=== PATIENT | male | born 1970 | race Caucasian/White ===

== ENCOUNTER → 2023-06-07 | Outpatient (CLI) | payer BC ==
[2023-06-07 15:55] LABS: Hematocrit 32.3 % (37.0-53.0); Hemoglobin 9.1 g/dL (13.5-17.5); Mean Corpuscular HGB 19.2 pg (26.0-34.0); Mean Corpuscular HGB Conc 28.2 g/dL (31.5-36.5); Mean Corpuscular Volume 68 fL (80-100); Mean Platelet Volume 10.7 fL (9.1-12.4); Platelet Count 509 K/mm3 (150-400); RDW Standard Deviation 42.6 fL (35.1-46.3); Red Blood Cell Count 4.75 M/mm3 (4.30-5.90); White Blood Cell Count 6.22 K/mm3 (4.00-11.30)
[2023-06-07 16:02] LABS: Ferritin, Serum 6 ng/mL (26-388); Iron Serum 14 ug/dL (65-175); Percent Saturation 2.8 % (20.0-50.0); Total Iron Binding Capacity 496 ug/dL (250-450); Very Low Density Lipoprot Chol 13 mg/dL (6-32)
[2023-06-07 16:12] LABS: Alanine Aminotransfer (ALT/SGP 68 U/L (12-78); Albumin, Blood 4.1 g/dL (3.4-5.0); Alk Phos 98 U/L (50-136); Anion Gap 5 mmol/L (6-16); Aspartate Aminotrans (AST/SGOT 40 U/L (12-37); Bilirubin, Total 0.4 mg/dL (0.1-1.0); Blood Urea Nitrogen 22 mg/dL (8-24); Bun/Creatinine Ratio 22.9 (12.0-20.0); CHOL/HDL RATIO 3.3; CO2, Blood 22 mmol/L (21-32); Chloride, Blood 108 mmol/L (98-108); Cholesterol 120 mg/dL (50-200); Creatinine, Blood 0.96 mg/dL (0.60-1.20); Globulin, Blood 4.2 g/dL (2.2-4.0); Glomerular Filtration Rate 94 (60-); Glucose, Blood 102 mg/dL (70-99); HDL Cholesterol 36 mg/dL (>39); Low Density Lipoprotein Chol 71 mg/dL (0-110); Potassium, Blood 4.4 mmol/L (3.5-5.5); Sodium, Blood 135 mmol/L (136-145); Total Protein, Blood 8.3 g/dL (6.4-8.2); Triglycerides 67 mg/dL (30-160)
[2023-06-07 16:25] LABS: BASOPHILS ABSOLUTE MAN 0.06 K/mm3 (0.00-0.23); BASOPHILS PERCENT MAN 1 % (0-2); EOSINOPHILS ABSOLUTE MAN 0.31 K/mm3 (0.00-0.68); EOSINOPHILS PERCENT MAN 5 % (0-6); LYMPHOCYTES ABSOLUTE MAN 2.11 K/mm3 (0.84-5.20); LYMPHOCYTES PERCENT MAN 34 % (21-46); MONOCYTES ABSOLUTE MAN 0.74 K/mm3 (0.16-1.47); MONOCYTES PERCENT MAN 12 % (4-13); NEUTROPHILS ABSOLUTE MAN 2.98 K/mm3 (1.96-9.15); SEG NEUTROPHILS PERCENT MAN 48 % (41-73); TOTAL CELLS COUNTED 100
== END ==
LOC: LAB SHORT 12:40 → LAB 12:40
PROVIDERS: Physician Assistant
DX: Z11.59 Encounter for screening for other viral diseases (principal); I10 Essential (primary) hypertension; R73.9 Hyperglycemia, unspecified; Z86.2 Personal history of diseases of the blood and blood-forming organs and certain disorders involving the immune mechanism
CPT/HCPCS: 80053; 80061; 82728; 83036; 83540; 83550; 85025; 86803

== ENCOUNTER 2025-06-18 06:07 | Day surgery (SDC) | payer BC ==
[~2025-06-18] VITALS: Ht 188 cm; Wt 127.3 kg
[2025-06-18] MEDS ORDERED: OZEMPIC1 MG/0.72 SC (06:31)
[2025-06-18] MEDS ORDERED: ROSUVASTATIN CAL5 MG PO (06:32)
[2025-06-18] MEDS ORDERED: IRBESARTAN300 M3 PO (06:32)
[2025-06-18] MEDS ORDERED: TADALAFIL10 MG PO (06:33)
[2025-06-18] MEDS ORDERED: ZINC15 PO (06:33)
[2025-06-18] MEDS ORDERED: IRON-VITAMIN C1 EAC1 PO (06:36)
[2025-06-18] MEDS ORDERED: Tranexamic Acid 100 ML IV ONE ×2 (07:01→10:16)
[2025-06-18] MEDS ORDERED: CeFAZolin Sodium 3,000 MG VIAL ONE (07:02)
[2025-06-18] MEDS ORDERED: Midazolam HCl 1MG / ML 2ML Vial ONE (07:07)
[2025-06-18] MEDS ORDERED: FentaNYL Citrate 50 MCG/ML 2 ML Injection ONE ×2 (07:07→10:03)
[2025-06-18] MEDS ORDERED: Bupivacaine 0.5% HCl 5 MG/ML 30MLVIAL ONE (07:08)
--- NOTE | 2025-06-18 07:19 | NUR ---
06/18/25 0719 Vadim Cisse TIME OUT FOR INTERSCALENE NERVE BLOCK AT [address] FORMAN AND PETER Felix, RN. START TIME 14 END TIME 07. PT TOLERATED WELL. O2 SATURATIONS AT 93-96% ON ROOM AIR.
[2025-06-18] MEDS ORDERED: Rocuronium Bromide 10 MG/ML 5ML Injection IV ONE (07:28)
--- NOTE | 2025-06-18 08:10 | NUR ---
06/18/25 0810 Vera Morrow LOCKING, SMALL REF:[id number] LOT: [id number] EXP:11/21/2029
[2025-06-18] MEDS ORDERED: Sugammadex Sodium 200 MG/2ML SDV (100 MG/ML) ONE (08:49)
[2025-06-18] MEDS ORDERED: Dexamethasone Sod Phos 10 MG/ML 1ML VIAL ONE (08:50)
[2025-06-18] MEDS ORDERED: Ondansetron HCl 2 MG / ML 2ML Vial ONE (08:50)
[2025-06-18 11:31] VITALS: BP 121/85
--- NOTE | 2025-06-18 13:01 | NUR ---
06/18/25 1301 Adrián Benítez IV WOULD NOT FLOW WHEN RN ATTEMPTED TO START TXA ADMINISTRATION. IV BAG AND TUBING WERE ADJUSTED, AND IV WAS FLUSHED SEVERAL TIMES BEFORE IT BEGAN TO RUN. PT REPORTED 7/10 PAIN (FLACC 0-3/10) IN SDU BUT DESCRIBED PAIN TOLERABLE. HE APPEARED ALERT AND RELAXED, AND HE EXPRESSED READINESS TO RETURN HOME.
== END 2025-06-18 11:58 | disposition home or self-care (01) ==
LOC: ORSCSDS 06:07
PROVIDERS: Orthopaedic Surgery
PROC: 0RRK00Z Replacement of Left Shoulder Joint with Reverse Ball and Socket Synthetic Substitute, Open Approach (ICD-10-PCS; principal; 2025-06-18 07:30)
DX: M19.012 Primary osteoarthritis, left shoulder (principal); I10 Essential (primary) hypertension; E78.5 Hyperlipidemia, unspecified; G47.33 Obstructive sleep apnea (adult) (pediatric); Z79.899 Other long term (current) drug therapy; Z79.85 Long-term (current) use of injectable non-insulin antidiabetic drugs; E13.9 Other specified diabetes mellitus without complications; E66.9 Obesity, unspecified; Z68.36 Body mass index [BMI] 36.0-36.9, adult
CPT/HCPCS: 73030; 82947; A9270; C1713; C1776; J0690; J1100; J2250; J2405; J2704; J3010; J7120